=== PATIENT | male | born 1955 | race Caucasian/White ===

== ENCOUNTER 2017-06-01 06:50 | Day surgery (SDC) | payer OTHER ==
[~2017-06-01] VITALS: Ht 177.8 cm; Wt 91.2 kg
[~2017-06-01 06:50] MED LIST: DILAUDID2 MG PO; FLOMAX0.4 MG PO; HYDROCHLOROTHIA25 MG PO; IBUPROFEN800 MG PO; NORCO 5-325 TA1 EACH PO; ZOFRAN4 MG PO
[2017-06-01] MEDS ORDERED: HYDROCODON-ACE1 EAC8 PO (15:45)
--- NOTE | 2017-06-02 06:28 | OR ---
[facility] [address] [place], [place] [address] Signed DATE OF OPERATION: 06/01/2017 SURGEON: Isma Kwong MD PREOPERATIVE DIAGNOSIS: Bilateral inguinal hernias, right greater than the left. POSTOPERATIVE DIAGNOSIS: Bilateral indirect reducible inguinal hernias, right greater than the left. PROCEDURE: Bilateral Messi onlay mesh inguinal herniorrhaphies. ESTIMATED BLOOD LOSS: None. INDICATIONS: Edgar is a 61-year-old gentleman who worked his whole life as a carpenter rough. He said he enjoys that very much. Unfortunately, hurt his back and has been having trouble with the back, so he has been off work. He moved here to [place] to be closer to his daughter. Last winter, he was trying to shovel some snow in and up with pain and swelling in both his groins. He said it was miserable. He was hoping he just pulled a muscle. He realized the pain and swelling was not going away and was worse with activities. He said the right is larger than the left. He said even to lift a gallon of milk out of refrigerator was bothering him, walking up and down the stairs was bothering him. He said the pain is as high as a 9/10 particularly with activities. He says when he lies down in bed. He said it is not quite so bad. He finally decided to go to his primary care provider. An ultrasound was ordered and he has bilateral inguinal hernias, the right being larger than the left. Consequently, he was asked to see me as a general surgeon. He said he is not sure if he can push it back inside. Today, once we had him pharmacologically paralyzed, we were able to reduce both hernias. In the office, I gave him a pamphlet on hernias and we looked at that together in detail. He understands the nature of an inguinal hernia. He understands the difference between a primary suture repair and a mesh repair. He also understands expected intraop and postop course. We did review the risks including, but not limited to bleeding, infection, scarring, change in contour of the skin, damage to the nerves, ischemic orchitis, recurrent hernias, and chronic pain. He had expressed understanding and wished to proceed. DESCRIPTION OF PROCEDURE: I met with Edgar and his family in our preop area. We agreed to repair both inguinal hernias and so we marked both sides. After this, Edgar was taken into the operating room and placed in a supine position under general endotracheal tube anesthesia. He was given preoperative antibiotics along with subcutaneous heparin. SCDs were utilized. He Electronically Signed By: ISMA KWONG MD 06/02/17 0628 PATIENT NAME: EDGAR JAIMES OPERATIVE REPORT DATE OF : 59 PHYSICIAN: ISMA KWONG MD REPORT #: [id number] REPORT IS CONFIDENTIAL AND NOT TO BE RELEASED WITHOUT AUTHORIZATION [address] [address] Signed was then prepped and draped in the usual sterile fashion. We utilized a standard oblique incision in the right groin and carried down to the tissue bluntly with the cautery. The external oblique fascia was opened along its length and developed medially and laterally. The ilioinguinal iliohypogastric nerves were visualized and protected throughout the case. The cord structures were then elevated to the level of pubic tubercle with the help of the Bayron drain. Upon inspection he had some weakness to the direct space, but no overt no overt hernia. We approached the deep ring on the anteromedial side of the cord structures. We quickly found his moderate to large inguinal hernia sac. We easily from the surrounding cord structures. This hernia sac was opened to make sure all the contents were reduced. The neck of the hernia sac was suture ligated with 2-0 PDS suture. The sac was amputated and passed off the field. After this, a piece of flat Prolene mesh was cut to fit his groin and the mesh was held in place medially and laterally with the help of #1 Prolene suture. A slit had been made in the mesh to accommodate the cord structures at the level of deep ring. After this, the wound was infiltrated with local anesthetic. The wound was irrigated and suctioned out until clear. The external oblique fascia was closed over the repair with the help of a running 2-0 PDS suture. The Indigo's fascia was then reapproximated in a running 3-0 Monocryl suture. The dermis was reapproximated with interrupted 3-0 subcuticular Monocryl sutures. The skin edges were then reapproximated in a running 6-0 fast absorbing plain gut suture. After this, we approached his left groin. We measured out an incision in the left groin to be a mirror image of the right. The details of the procedure are basically the same. Once again, he had an indirect inguinal hernia and much smaller hernia sac. Once again, we could visualize the ilioinguinal and iliohypogastric nerves and we protected them throughout the case. We also used our flat Prolene mesh in identical manner to repair his hernia on the left side. After this, the wound had been closed as before. Dry gauze and tape were then applied to both incisions. Edgar was awakened from his anesthesia, extubated in the OR, and taken to recovery room in stable condition. Isma Kwong MD ALB/MODL /[id number] Electronically Signed By: ISMA KWONG MD 06/02/17 0628 PATIENT NAME: EDGAR JAIMES OPERATIVE REPORT DATE OF : 59 PHYSICIAN: ISMA KWONG MD REPORT #: [id number] REPORT IS CONFIDENTIAL AND NOT TO BE RELEASED WITHOUT AUTHORIZATION [address] [place], [place] [address] Signed cc: MD Nancy Rod PA-C Electronically Signed By: ISMA KWONG MD 06/02/17 0628 PATIENT NAME: EDGAR JAIMES OPERATIVE REPORT DATE OF : 59 PHYSICIAN: ISMA KWONG MD REPORT #: [id number] REPORT IS CONFIDENTIAL AND NOT TO BE RELEASED WITHOUT AUTHORIZATION
== END 2017-06-02 09:15 | disposition home or self-care (01) ==
LOC: DS 06:50 → MS 17:25 → DS 06-02 09:15
PROVIDERS: Colon & Rectal Surgery
PROC: 0YUA0JZ Supplement Bilateral Inguinal Region with Synthetic Substitute, Open Approach (ICD-10-PCS; principal; 2017-06-01 08:45)
DX: K40.20 Bilateral inguinal hernia, without obstruction or gangrene, not specified as recurrent (principal); R06.83 Snoring; M19.90 Unspecified osteoarthritis, unspecified site; F17.220 Nicotine dependence, chewing tobacco, uncomplicated; F12.90 Cannabis use, unspecified, uncomplicated; Z87.442 Personal history of urinary calculi; Z88.5 Allergy status to narcotic agent; Z79.899 Other long term (current) drug therapy; Z98.890 Other specified postprocedural states
CPT/HCPCS: 00830; C1781; J0360; J0690; J1170; J2250; J2405; J2550; J2704; J2710; J3010; J7120

== ENCOUNTER 2018-10-25 12:17 | Emergency (ER) | payer OTHER ==
[~2018-10-25] VITALS: Ht 177.8 cm; Wt 91.2 kg
--- OUTSIDE RECORDS SUMMARY | ~2018-10-25 | XMS | Clinical Summary ---
Demographics + + + | Address | [address] | | | [place] [address] | + + + | Home Phone | | + + + | Preferred Language | Unknown | + + + | Marital Status | | + + + | Quaker Affiliation | Unknown | + + + | Race | Unknown | + + + | Ethnic Group | Unknown | + + + Author + + + | Author | [facility] | + + + | Organization | [facility] [employer] | + + + | Address | Unknown | + + + | Phone | Unavailable | + + + Support + + +---------+ + | Name | Relationship | Address | Phone | + + +---------+ + | Meenu Geronimo | ECON | Unknown | | + + +---------+ + Care Team Providers + +------+ + | Care Materials Handling Coordinator Name | Role | Phone | + +------+ + | Nancy Montes PA-C | PP | | + +------+ + Allergies + + + + + + | Active Allergy | Reactions | Severity | Noted | Comments | | | | | Date | | + + + + + + | Codeine | Angioedema | High | 11/04/19 | | | | | | 15 | | + + + + + + | Gabapentin | Other (See Comments) | Medium | 07/13/20 | Made patient feel | | | | | 18 | uneasy, lightheaded, | | | | | | sick. | + + + + + + Current Medications + + +--------+---------+------+------+-------+ | Prescription | Sig. | Disp. | Refills | Star | End | Statu | | | | | | t | Date | s | | | | | | Date | | | + + +--------+---------+------+------+-------+ | | Take 1 tablet by | | | | | Activ | | HYDROcodone-acetamin | mouth every 6 (six) | | | | | e | | ophen (NORCO) 5-325 | hours as needed for | | | | | | | MG per tablet | Pain. | | | | | | + + +--------+---------+------+------+-------+ | losartan (COZAAR) | Take 100 mg by mouth | | | | | Activ | | 100 MG tablet | daily. | | | | | e | + + +--------+---------+------+------+-------+ | amLODIPine | Take 1 tablet by | 30 | 11 | 12/ | 12 | Activ | | (NORVASC) 10 MG | mouth daily. | tablet | | 02/03 | 02/03 | e | | tablet | | | | 18 | 19 | | + + +--------+---------+------+------+-------+ Active Problems + + + | Problem | Noted Date | + + + | Spinal stenosis of lumbar region with neurogenic claudication | 11/29/2017 | + + + | Facet arthropathy, lumbar | 11/29/2017 | + + + | DDD (degenerative disc disease), lumbar | 10/11/2017 | + + + | Chronic left-sided low back pain with left-sided sciatica | 10/11/2017 | + + + | Radiculopathy of lumbar region | 10/11/2017 | + + + | Closed compression fracture of L2 lumbar vertebra | 10/11/2017 | + + + + + | Overview: chronic | | Problem List Reel Tender Utility | + + + + + | Nephrolithiasis | 11/03/2014 | + + + | Left knee pain | 02/14/2012 | + + + + + | Overview: Overview: Saw aryan in 2010. MRI 01/2011 showed | | degenerative joint disease in all three compartments, particular | | noting a degenerative medial meniscal tear. After MRI, completed | | arthroscopy. Pain Clinic- NSAIDs for now, trial of | | Pennsaid also given. Meet with podiatry, try steroid injections. | + + + + + | Benign hypertensive heart disease without heart failure | 04/01/2009 | + + + + + | Overview: Overview: 180/101 with donating plasma, cut back on | | salt, lost weight, was 240 lb. | + + Resolved Problems + + + + | Problem | Noted | Resolved | | | Date | Date | + + + + | Intractable abdominal pain | 11/04/19 | | | | 15 | 5 | + + + + Encounters +--------+ + + + + | Date | Type | Specialty | Care Team | Description | +--------+ + + + + | 10/12/ | Office | | Yanet Murcia DO | Hypertension, | | 2019 | Visit | | | unspecified type | | | | | | (Primary Dx); RBBB; | | | | | | Tobacco chew use | +--------+ + + + + | 09/01/ | Documentati | | Evelyn Robert | Other (ENTERED IN | | 2018 | on Only | | KELVIN Aguilar | ERROR) | +--------+ + + + + from Last 3 Months Family History + + +------+ + | Medical History | Relation | Name | Comments | + + +------+ + | Cancer | Father | | | + + +------+ + | Heart attack | Mother | | | + + +------+ + + +------+ + + | Relation | Name | Status | Comments | + +------+ + + | Father | | | | + +------+ + + | Mother | | | | + +------+ + + Social History + +-------+ +--------+------+ | Tobacco Use | Types | Packs/Day | Years | Date | | | | | Used | | + +-------+ +--------+------+ | Current Every Day | | | | | | Smoker | | | | | + +-------+ +--------+------+ + +---+---+---+ | Smokeless Tobacco: | | | | | Current User | | | | + +---+---+---+ + + | Tobacco Cessation: Ready to Quit: No | + + + + +---------+ + | Alcohol Use | Drinks/We | oz/Week | Comments | | | ek | | | + + +---------+ + | Yes | | | occasionally. | + + +---------+ + + + + | Sex Assigned at | Date Recorded | | | | + + + | Not on file | | + + + Last Filed Vital Signs + + + + | Vital Sign | Reading | Time Taken | + + + + | Blood Pressure | 136/78 | 10/12/2018 10:29 AM PDT | + + + + | Pulse | 86 | 10/12/2018 10:29 AM PDT | + + + + | Temperature | 36.9 C (98.4 F) | 11/04/2014 11:08 AM PDT | + + + + | Respiratory Rate | 18 | 11/04/2014 11:08 AM PDT | + + + + | Oxygen Saturation | 97% | 10/12/2018 10:29 AM PDT | + + + + | Inhaled Oxygen | - | - | | Concentration | | | + + + + | Weight | 93.9 kg (207 lb) | 10/12/2018 10:29 AM PDT | + + + + | Height | 176.5 cm (5' 9.5") | 10/12/2018 10:29 AM PDT | + + + + | Body Mass Index | 30.13 | 10/12/2018 10:29 AM PDT | + + + + Plan of Treatment +--------+---------+ + + + | Date | Type | Specialty | Care Team | Description | +--------+---------+ + + + | 04/12/ | Office | | [facility] | | | 2019 | Visit | | [address] | | | | | | [place] | | | | | | [address] | | | | | | | | +--------+---------+ + + + + + + + + | Health Maintenance | Due Date | Last Done | Comments | + + + + + | Vaccine: | | | | | Dtap/Tdap/Td (1 - | 7 | | | | Tdap) | | | | + + + + + | Vaccine: | | | | | Pneumococcal 19-64 | 7 | | | | (PPSV23 only) Medium | | | | | Risk (1 of 1 - | | | | | PPSV23) | | | | + + + + + | Colon Cancer | | | | | Screening | 8 | | | | (Colonoscopy) | | | | + + + + + | Vaccine: Zoster (1 | | | | | of 2) | 8 | | | + + + + + | Vaccine: Influenza | | | | | (Season Ended) | 9 | | | + + + + + Results Not on filefrom Last 3 Months Insurance + +--------+ +------+-------+ + | Payer | Benefi | Subscriber | Type | Phone | Address | | | t Plan | ID | | | | | | / | | | | | | | Group | | | | | + +--------+ +------+-------+ + | MEDICAID | [employer] | [id number] | | | [address] | | | N | | | | [place] | | | [place] | | | | [phone] | | | [employer] | | | | | + +--------+ +------+-------+ + + +--------+ +--------+ + + | Guarantor Name | Accoun | Relation to | Date | Phone | Billing Address | | | t Type | Patient | of | | | | | | | | | | + +--------+ +--------+ + + | GEMMA GERONIMO | Person | Self | [birth year] Home: | [address] | | | al/Fam | | [phone] | [place] [address] | | | francy | | | [phone] | | + +--------+ +--------+ + +
--- OUTSIDE RECORDS SUMMARY | ~2018-10-25 | XMS | Encounter Summary ---
Demographics + + + | Address | [address] | | | [place] [address] | + + + | Home Phone | | + + + | Preferred Language | Unknown | + + + | Marital Status | | + + + | Shinto Affiliation | Unknown | + + + | Race | Unknown | + + + | Ethnic Group | Unknown | + + + Author + + + | Author | [facility] [employer] | + + + | Organization | [facility] [employer] [facility] | + + + | Address | Unknown | + + + | Phone | Unavailable | + + + Support + + +---------+ + | Name | Relationship | Address | Phone | + + +---------+ + | Meenu Geronimo | ECON | Unknown | | + + +---------+ + Care Team Providers + +------+ + | Care Director Imaging Name | Role | Phone | + +------+ + | Nancy Montes PA-C | PCP | | + +------+ + Reason for Visit + + + | Reason | Comments | + + + | Follow-up | 3 month | + + + Consult and Treat (Routine) + +--------+ + + + + | Status | Reason | Specialty | Diagnoses / | Referred By | Referred To | | | | | Procedures | Contact | Contact | + +--------+ + + + + | Authorized | | Cardiology | Diagnoses | Simon, | Frannie | | | | | Essential | Nancy Cervatnes, | MD Prashant | | | | | (primary) | PRECIOUS [phone] | [address] | | | | | hypertension | [address] | [address] | | | | | Procedures | [address] | [place] | | | | | Consult | [place], | [address] Phone: | | | | | | [place] | [phone] | | | | | | [address] | Fax: | | | | | | Phone: | [phone] | | | | | | [phone] | | | | | | | Fax: | | | | | | | [phone] | | + +--------+ + + + + Encounter Details +--------+---------+ + + + | Date | Type | Department | Care Team | Description | +--------+---------+ + + + | 10/12/ | Office | [facility] | Yanet Murcia DO | Hypertension, | | 2019 | Visit | Cardiology [place] | [address] | unspecified type | | | | [address] | [place] | (Primary Dx); RBBB; | | | | [facility] [address] | [id number] | Tobacco chew use | | | | [place] [address] | | | | | | [phone] | | | +--------+---------+ + + + Social History + +-------+ +--------+------+ [...] | | | + +---+---+---+ + + +---------+ + | Alcohol Use | Drinks/We | oz/Week | Comments | | | ek | | | + + +---------+ + | Yes | | | occasionally. | + + +---------+ + + + + | Sex Assigned at | Date Recorded | | | | + + + | Not on file | | + + + as of this encounter Last Filed Vital Signs + + + + | Vital Sign | Reading | Time Taken | + + + + | Blood Pressure | 136/78 | 10/12/2018 10:29 AM PDT | + + + + | Pulse | 86 | 10/12/2018 10:29 AM PDT | + + + + | Temperature | - | - | + + + + | Respiratory Rate | - | - | + + + + | Oxygen [...] AM PDT | + + + + in this encounter Progress Notes Yanet Murcia DO - 10/12/2018 10:20 AM PDTFormatting of this note may be different from misti shafer. [facility] Cardiology Cardiology Follow Up Note Reason for Consultation: HTN Requesting Physician: Nancy Montes History Obtained From: patient HISTORY OF PRESENT ILLNESS: Cardiac Problem List 1. HTN 2. RBBB Non Cardiac Problem List 3. Chronic Pain 4. DDD 5. OA left knee 6. Current tobacco use- chew The patient is a 62-year-old male who presents at the cardiology office for follow up price yepez hypertension. The patient reports that he has had elevated blood pressures since about 2004. He was recently started on losartan and this has been uptitrated to 100 mg by mouth daily. The patient states that he does not want to take oral diuretics as he has issues wit h nocturia and he feels that this will become worse with these medications. He is an active tobacco user and chews daily. He reports when he chews, he feels his blood pressure elevat e. He has a blood pressure cuff at home and reports that when he checks at home, the blood pressures are usually in the 140 systolic. The patient reports that he has a history of whi te coat hypertension and admits that he is quite nervous today for this appointment. He mauricio cribes himself as an active individual. His limiting factor to exertion is primarily back p ain. 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 He denies any exertion al chest pain through shortness of breath whatsoever. He denies any lower extremity swellin g, orthopnea, PND. He smokes marijuana daily for back pain, but denies any other illicit dr ug use. Interim History The patient was last seen by me on 07/13/18. At that time, we added amlodipine 10mg po siri y. He was asked to check his BP regularly. Today, he reports that he has been feeling fine l ately. He has not been checking his blood pressure like I asked last visit. Instead, he only checks his blood pressure if he is feeling bad. When I asked him what he meant by this he s aid 'when I feel weak'. He reports that his blood pressures are typically in the 130s during these periods. He did not write them down. He has been very inactive lately mainly due to i ssues with back pain. He denies any chest pain, SOB, or other new symptoms since we last saw each other. Review of Systems Constitutional: Negative for fatigue. HENT: Negative for nosebleeds. Eyes: Negative for visual disturbance. Respiratory: Negative for cough and shortness of breath. Cardiovascular: Negative for chest pain, palpitations and leg swelling. Gastrointestinal: Negative for nausea, vomiting, abdominal pain and blood in stool. Genitourinary: Negative for hematuria or dysuria. Musculoskeletal: Negative for myalgias. Positive for back pain and knee pain. Skin: Negative for color change. Neurological: Negative for dizziness, syncope and numbness. Hematological: Does not bruise/bleed easily. Psychiatric/Behavioral: The patient is not depressed. He is anxious. PAST MEDICAL & SURGICAL HISTORY Past Medical History Diagnosis Date Joint pain Past Surgical History Procedure Laterality Date COLONOSCOPY HEMORRHOID SURGERY KNEE ARTHROSCOPY W/ MENISCAL REPAIR Left MEDICATIONS Home Medications Outpatient Encounter Prescriptions as of 10/12/2018 Medication Sig Dispense Refill amLODIPine (NORVASC) 10 MG tablet Take 1 tablet by mouth daily. 30 tablet 11 HYDROcodone-acetaminophen (NORCO) 5-325 MG per tablet Take 1 tablet by mouth every 6 (s ix) hours as needed for Pain. losartan (COZAAR) 100 MG tablet Take 100 mg by mouth daily. No facility-administered encounter medications on file as of 10/12/2018. Allergies Allergies Allergen Reactions Codeine Angioedema Gabapentin Other (See Comments) Made patient feel uneasy, lightheaded, sick. FAMILY HISTORY Family History Problem Relation Age of Onset Heart attack Mother Cancer Father mom [place] at 60yo Dad pancreatic cancer SOCIAL HISTORY Social History Social History Marital status: Spouse name: N/A Number of children: N/A Years of education: N/A Occupational History Not on file. Social History Main Topics Smoking status: Current Every Day Smoker Smokeless tobacco: Current User Alcohol use Yes Comment: occasionally. Drug use: Yes Types: Marijuana Sexual activity: Not on file Other Topics Concern Not on file Social History Narrative No narrative on file PHYSICAL EXAM Vital Signs: BP 136/78 (BP Location: Left upper arm, Patient Position: Sitting) | Pulse 86 | Ht 1.765 m (5' 9.5") | Wt 93.9 kg (207 lb) | SpO2 97% | BMI 30.13 kg/m Physical Exam GENERAL: Well developed, well nourished, in no distress. Appears approximately stated age . HEENT: Normocephalic, atraumatic. EYES: PERRL, sclerae anicteric, no xanthelsasmas NECK: No JVD, lymphadenopathy, thyromegaly, bruits. Carotid pulses are 2+ bilaterally LUNGS: Clear bilaterally, with no rales, rhonchi or wheezing noted, respirations unlabored HEART: Nondisplaced PMI, regular rate and rhythm, S1, S2 normal. No murmurs, rubs or gall ops noted. ABDOMEN: Soft, nontender, no organomegaly, masses or bruits. Bowel sounds are normal in a ll 4 quadrants. The abdominal aortic pulsation is not palpable. EXTREMITIES: No edema. Radial pulses 2+ bilaterally. Femoral pulses are 2+ bilaterally wi thout bruits. DP and PT pulses are 2+ bilaterally. SKIN: Warm and dry, capillary refill is normal, no lesions. NEUROLOGIC: Awake, alert and oriented x 3. No focal motor deficits. PSYCHIATRIC: Appropriate, affect appears normal DATA No recent blood work available EK03/13/18 Normal sinus rhythm mentioning beats per minute, right bundle branch block 07/13/18 ordered and reviewed by myself Sinus tachycardia 109 bpm, right bundle branch block ASSESSMENT & PLAN 1. HTN 2. RBBB 3. Chronic Pain 4. DDD 5. OA left knee 6. Current tobacco use- chew - Mr. Geronimo is a 62 yo male who presents to the cardiology clinic to follow up for histo ry of hypertension. He is currently on losartan 100 mg by mouth daily. At last visit, we add ed amlodipine 10mg po daily. His blood pressures are much better controlled with this. He is not checking his BP regularly at home, thus difficult to know what his average systolic blo od pressures are. His BP today is 136/78. - Continue losartan 100 mg by mouth daily - Continue amlodipine 10 mg by mouth daily - I have asked the patient to monitor his blood pressures at home - If his blood pressure is uncontrolled and next visit, we'll consider adding either carved ilol or labetalol - We discussed a heart healthy diet for blood pressure control - He was encouraged to stop chewing, he is not interested in quitting at this time - Follow up in 6 months Thank you for allowing me to participate in the care of this patient. Primary Care Physician: Nancy Murcia DO 10/12/2018in this encounter Plan of Treatment +--------+---------+ + + + | Date | Type | Specialty | Care Team | Description | +--------+---------+ + + + | 04/12/ | Office | Cardiology | Yanet Murcia DO | | | 2018 | Visit | | [address] | | | | | | [place] | | | | | | [id number] | | | | | | | | +--------+---------+ + + + as of this encounter Visit Diagnoses + + | Diagnosis | + + | Hypertension, unspecified type - Primary | + + | RBBB | + + | Right bundle branch block | + + | Tobacco chew use | + + | Tobacco use disorder | + +
--- OUTSIDE RECORDS SUMMARY | ~2018-10-25 | XMS | Encounter Summary ---
Demographics + + + | Address | [address] | | | [place] [address] | + + + | Home Phone | | + + + | Preferred Language | Unknown | + + + | Marital Status | | + + + | Hoahaoism Affiliation | Unknown | + + + | Race | Unknown | + + + | Ethnic Group | Unknown | + + + Author + + + | Author | [facility] | + + + | Organization | [facility] | + + + | Address | Unknown | + + + | Phone | Unavailable | + + + Support + + +---------+ + | Name | Relationship | Address | Phone | + + +---------+ + | Meenu Geronimo | ECON | Unknown | | + + +---------+ + Care Team Providers + +------+ + | Care Air Tucker Name | Role | Phone | + [...] | | | | Essential | Nancy Cervantes, | MD Prashant | | | | | (primary) | PRECIOUS [address] | [address] | | | | | hypertension | [address] | [address] | | | | | Procedures | Ave | [place] | | | | | Consult | [place], | [address] Phone: | | | | | | [place] | [phone] | | | | | | [address] | Fax: | | | | | | Phone: | [phone] | | | | | | [phone] | | | | | | | Fax: | | | | | | | [phone] | | + +--------+ + + + + Encounter Details +--------+---------+ + + + | Date | Type | Department | Care Team | Description | +--------+---------+ + + + | 10/12/ | Office | [facility] | Yanet Murcia DO | Hypertension, | | 2019 | Visit | Cardiology [place] | [address] | unspecified type | | | | [address] | [place] | (Primary Dx); RBBB; | | | | [facility] [address] | [id number] | Tobacco chew use | | | | [place] [address] | | | | | | [phone] | | | +--------+---------+ + + + [...] note may be different from misti shafer. [facility] Cardiology Cardiology Follow Up Note Reason for [...] Onset Heart attack Mother Cancer Father mom [place] at 60yo Dad pancreatic cancer SOCIAL HISTORY [...] [place] | | | | | | [id number] | | | | | | | [...]
--- OUTSIDE RECORDS SUMMARY | ~2018-10-25 | XMS | Encounter Summary ---
Demographics + + + | Address | [address] | | | [place] [address] | + + + | Home Phone | | + + + | Preferred Language | Unknown | + + + | Marital Status | | + + + | Worship Affiliation | Unknown | + + + | Race | Unknown | + + + | Ethnic Group | Unknown | + + + Author + + + | Author | [facility] | + + + | Organization | [facility] | + + + | Address | Unknown | + + + | Phone | Unavailable | + + + Support + + +---------+ + | Name | Relationship | Address | Phone | + + +---------+ + | Meenu Geronimo | ECON | Unknown | | + + +---------+ + Care Team Providers + +------+ + | Care Cartographic Aide Name | Role | Phone | + +------+ + | Nancy Montes PA-C | PCP | | + +------+ + Reason for Visit +--------+ + | Reason | Comments | +--------+ + | Other | ENTERED IN ERROR | +--------+ + Encounter Details +--------+ + + + + | Date | Type | Department | Care Team | Description | +--------+ + + + + | 09/01/ | Documentati | [facility] | Evelyn Robert | Other (ENTERED IN | | 2019 | on Only | Cardiology Edu Aguilar MA | ERROR) | | | | [address] | | | | | | [place] | | | | | | [address] | | | | | | [phone] | | | +--------+ + + + + Social History + +-------+ [...] + + + as of this encounter Plan of Treatment +--------+---------+ + + + | Date | Type | Specialty | Care Team | Description | +--------+---------+ + + + | 04/12/ | Office | Cardiology | Yanet Murcia DO | | | 2019 | Visit | | [address] | | | | | | [place] | | | | | | [address] | | | | | | | | +--------+---------+ + + + as of this encounter Visit Diagnoses Not on filein this encounter"
--- OUTSIDE RECORDS SUMMARY | ~2018-10-25 | XMS | Encounter Summary ---
Demographics + + + | Address | [address] | | | [place] [address] | + + + | Home Phone | | + + + | Preferred Language | Unknown | + + + | Marital Status | | + + + | Taoist Affiliation | Unknown | + + + | Race | Unknown | + + + | Ethnic Group | Unknown | + + + Author + + + | Author | [facility] | + + + | Organization | [facility] | + + + | Address | Unknown | + + + | Phone | Unavailable | + + + Support + + +---------+ + | Name | Relationship | Address | Phone | + + +---------+ + | Meenu Gernoimo | ECON | Unknown | | + + +---------+ + Care Team Providers + +------+ + | Care Broadcast Operations Engineer Name | Role | Phone | + [...] [place] | | | | | | [address] | | | | | | [phone] | | | +--------+ + + + [...] [place] | | | | | | [address] | | | | | | | | +--------+---------+ + + + as of this encounter Visit Diagnoses Not on filein this encounter"
--- OUTSIDE RECORDS SUMMARY | ~2018-10-25 | XMS | Clinical Summary ---
Demographics + + + | Address | [address] | | | [place] [address] | + + + | Home Phone | | + + + | Preferred Language | Unknown | + + + | Marital Status | | + + + | Yazidi Affiliation | Unknown | + + + | Race | Unknown | + + + | Ethnic Group | Unknown | + + + Author + + + | Author | [facility] | + + + | Organization | [facility] | + + + | Address | Unknown | + + + | Phone | Unavailable | + + + Support + + +---------+ + | Name | Relationship | Address | Phone | + + +---------+ + | Meenu Geronimo | ECON | Unknown | | + + +---------+ + Care Team Providers + +------+ + | Care Fish Housekeeper Name | Role | Phone | + [...] | Overview: chronic | | Problem List Field Artillery Targeting Technician Utility | + + + + + [...] [place] | | | | | | [address] | | | | | | | [...] +------+-------+ + | MEDICAID | [place] | [id number] | | | [address] | | | [address] | | | | [place] | | | [place] | | | | [address] | | | PER DIEM PHYSICAL THERAPIST | | | | | + +--------+ [...] | [phone] | [place] [address] | | | francy | | | [phone] | | + +--------+ +--------+ + +
[~2018-10-25 12:17] MED LIST changes: +HYDROCODON-ACE1 EAC8 PO
--- OUTSIDE RECORDS SUMMARY | 2018-10-25 12:20 | XMS ---
PreManage Notification: GEMMA JAIMES Security Director Trial Events No recent Security Events currently on file CRITERIA MET - LEYDAP CARE PROVIDERS Anuradha, Jennifer C Primary Care Current PHONE: Unknown orkris Case or Splicer Helper Current PHONE: Unknown Luma has no Care Guidelines for this patient. Quyen VISIT COUNT (12 MO.) 1 CARLITO Barros TOTAL 1 NOTE: Visits indicate total known visits. ED/UCC VISIT TRACKING (12 MO.) 10/25/2018 12:[address] [facility] [place] TYPE: Emergency COMPLAINT: - VOMITING, ABD/FLANK PAIN INPATIENT VISIT TRACKING (12 MO.) No inpatient visits to display in this time frame [email or web address]
[2018-10-25] MEDS ORDERED: LOSARTAN POTAS100 MG PO (12:31)
[2018-10-25] MEDS ORDERED: AMLODIPINE BESY10 MG PO (12:31)
[2018-10-25] MEDS ORDERED: ONDANSETRON ODT8 MG PO (16:50)
[2018-10-25] MEDS ORDERED: PROMETHAZINE HC25 M1 PO (16:54)
[2018-10-25] MEDS ORDERED: NORCO 7.5-3251 EACH PO (16:54)
== END 2018-10-25 17:13 | disposition home or self-care (01) ==
LOC: ED 12:17
DX: I72.2 Aneurysm of renal artery (principal); Z88.5 Allergy status to narcotic agent; Z79.899 Other long term (current) drug therapy
CPT/HCPCS: 71046; 74177; 80053; 81001; 83690; 85025; 96361; 99284-25; J1170; J2405; J2550; J7030; Q9967

== ENCOUNTER 2019-08-09 16:04 | Emergency (ER) | payer OTHER ==
[~2019-08-09] VITALS: Ht 177.8 cm; Wt 91.2 kg
[~2019-08-09 16:04] MED LIST changes: +AMLODIPINE BESY10 MG PO; +LOSARTAN POTAS100 MG PO; +NORCO 7.5-3251 EACH PO; +ONDANSETRON ODT8 MG PO; +PROMETHAZINE HC25 M1 PO
--- OUTSIDE RECORDS SUMMARY | 2019-08-09 16:08 | XMS ---
PreManage Notification: GEMMA JAIMES Security Fire Prevention Forester Events No recent Security Events currently on file CRITERIA MET - [facility] Physician Exhaust Equipment Operator 10/26/2018-Current PHONE: [phone] Jennifer Ling Primary Care Current PHONE: Unknown orkris Case or Rn Chronic Current PHONE: Unknown Luma has no Care Guidelines for this patient. E.D. VISIT COUNT (12 MO.) [address] [facility] TOTAL 2 NOTE: Visits indicate total known visits. ED/UCC VISIT TRACKING (12 MO.) 08/09/2019 16:06 [facility] [place] TYPE: Emergency COMPLAINT: - LEFT LEG PAIN 10/25/2018 12:18 [facility] [place] TYPE: Emergency COMPLAINT: - VOMITING, ABD/FLANK PAIN DIAGNOSES: - Allergy status to narcotic agent status - Nausea with vomiting, unspecified - Other manager long term care (current) drug therapy - Aneurysm of renal artery INPATIENT VISIT TRACKING (12 MO.) No inpatient visits to display in this time frame [email or web address]
[2019-08-09] MEDS ORDERED: XARELTO15 MG PO (16:34)
== END 2019-08-09 16:43 | disposition home or self-care (01) ==
LOC: ED 16:04
DX: I82.402 Acute embolism and thrombosis of unspecified deep veins of left lower extremity (principal); Z88.5 Allergy status to narcotic agent; Z79.899 Other long term (current) drug therapy
CPT/HCPCS: 99283

== ENCOUNTER 2023-12-09 08:05 | Emergency (ER) | payer MEDICARE, OTHER ==
[~2023-12-09] VITALS: Ht 177.8 cm; Wt 84.7 kg
[~2023-12-09 08:05] MED LIST changes: +XARELTO15 MG PO
--- OUTSIDE RECORDS SUMMARY | 2023-12-09 08:06 | XMS ---
PreManage Notification: GEMMA JAIMES Security Naval Aircrewman Mechanical Events No recent Security Events currently on file CRITERIA MET - PDMP CARE PROVIDERS [facility]OR SUM[facility]ERS Physician Psychiatric Registered Nurse 10/26/2018-Current PHONE: [phone] -Steven DMD Dentist: Stationary Steam Engineer Current PHONE: [phone] [facility]/Center: [facility] Current \F\ [facility] PHONE: [phone] Luma has no Care Guidelines for this patient. E.D. VISIT COUNT (12 MO.) 1 [facility] TOTAL 1 NOTE: Visits indicate total known visits. ED/UCC VISIT TRACKING (12 MO.) 12/09/2023 08:05 [facility] [place] TYPE: Emergency COMPLAINT: - ABDOMINAL PAIN INPATIENT VISIT TRACKING (12 MO.) No inpatient visits to display in this time frame [id number]
[2023-12-09 08:29] LABS: BASOPHILS 0.6 % (0-2); HEMATOCRIT 43.5 % (35.0-50.0); HEMOGLOBIN 14.6 g/dL (12.0-18.0); LYMPHOCYTES 20.5 % (24-44); MCH 31.2 (27-36); MCHC 33.6 g/dl (30-36); MCV 92.8 fl (81-99); MONOCYTES 2.3 % (0-12); NEUTROPHILS 76.6 % (39-80); PLATELET COUNT 205 K/uL (140-440); RBC 4.69 M/ul (4.3-5.7); RDW 13.2 (10.5-15.0)
[2023-12-09] MEDS ORDERED: SODIUM CHLORIDE 0.9% 1,000 ML IV PRN (08:30)
[2023-12-09] MEDS ORDERED: ondansetron HCL 4 MG/2 ML VIAL IV ONE (08:30)
[2023-12-09] MEDS ORDERED: HYDROmorphone HCL 1 MG/ML SYR IV ONE ×2 (08:30→12:15)
[2023-12-09 08:41] LABS: ALBUMIN 4.2 g/dL (3.4-5.0); ALBUMIN/GLOBULIN RATIO 0.91 (1.1-2.4); ANION GAP 22.2 (7-21); BILIRUBIN, TOTAL 0.8 ng/dL (0.2-1.0); BUN/CREATININE RATIO 14.08 (6.0-28.6); CALCIUM 9.6 mg/dL (8.5-10.1); CREATININE, SERUM 1.42 mg/dL (0.70-1.30); POTASSIUM 4.2 mmol/L (3.5-5.1); PROTEIN, TOTAL 8.8 g/dL (6.4-8.2)
[2023-12-09] MEDS ORDERED: PROCHLORPERAZINE EDISYLATE 10 MG/2 ML VIAL IV ONE (12:45)
[2023-12-09] MEDS ORDERED: COMPAZINE25 MG PR (13:19)
[2023-12-09] MEDS ORDERED: ONDANSETRON ODT8 MG PO (13:19)
[2023-12-09] MEDS ORDERED: OXYCODONE HCL5 MG PO (13:19)
[2023-12-09 13:48] VITALS: BP 134/66
== END 2023-12-09 13:49 | disposition home or self-care (01) ==
LOC: ED 08:05
PROVIDERS: Emergency Medicine
DX: K43.9 Ventral hernia without obstruction or gangrene (principal); K83.8 Other specified diseases of biliary tract; R79.89 Other specified abnormal findings of blood chemistry; I10 Essential (primary) hypertension; Z95.828 Presence of other vascular implants and grafts; Z88.5 Allergy status to narcotic agent; Z79.01 Long term (current) use of anticoagulants; Z79.899 Other long term (current) drug therapy
CPT/HCPCS: 36415; 74177; 76705; 80053; 85025; 96361; 96375; 96376; 99284-25; J0780; J1170; J2405; J7030; Q9967

== ENCOUNTER 2024-05-09 05:45 | Observation (INO) | payer MEDICARE, OTHER ==
[2024-05-02 16:50] VITALS: BP 120/72
[2024-05-09] VITALS (9 sets, daily range): BP systolic 132–175; BP diastolic 76–89
[~2024-05-09] VITALS: Ht 177.8 cm; Wt 78.6 kg
[~2024-05-09 05:45] MED LIST changes: +CHLORTHALIDONE25 MG PO; +CILOSTAZOL100 MG PO; +COMPAZINE25 MG PR; +LABETALOL HCL200 MG PO; +LACTATED RINGER'S 1,000 ML IV SCH; +OXYCODONE HCL5 MG PO; +ROSUVASTATIN CA20 MG PO; +ZESTRIL10 MG PO
[2024-05-09] MEDS ORDERED: OXYCODONE-ACET1 EAC3 PO (06:00)
[2024-05-09] MEDS ORDERED: iopamidoL 30 ML VIAL ONE (06:39)
[2024-05-09] MEDS ORDERED: BUPIVACAINE HCL 0.25% 50 ML MDV ONE (06:39)
[2024-05-09] MEDS ORDERED: SODIUM CHLORIDE 0.9% 40 ML IV ONE (06:40)
[2024-05-09] MEDS ORDERED: LIDOCAINE 1% W/ EPI 1:200,000 30 ML SDV ONE (06:40)
[2024-05-09] MEDS ORDERED: IBLOOD GLUCOSE TEST STRIP 1 EA TEST VI PRN ×2 (07:00→09:00)
[2024-05-09] MEDS ORDERED: CEFAZOLIN SODIUM 2 GM/20 ML SYR IV SCH (07:00)
[2024-05-09] MEDS ORDERED: LIDOCAINE HCL 1% 5 ML SDV INJ ONE (07:00)
[2024-05-09] MEDS ORDERED: SCOPOLAMINE 1 MG/3 DAYS PATCH 1 EACH TDSY TD SCH (07:00)
[2024-05-09] MEDS ORDERED: ENOXAPARIN SODIUM 40 MG/0.4 ML SYR SUB-Q SCH ×2 (07:00→10:31)
[2024-05-09] MEDS ORDERED: fentaNYL citrate 250 MCG/5 ML VIAL ONE (07:06)
[2024-05-09] MEDS ORDERED: ROCURONIUM BROMIDE 50 MG/5 ML SYR ONE ×2 (07:06→09:41)
[2024-05-09] MEDS ORDERED: KETOROLAC TROMETHAMINE 30 MG/ML VIAL ONE (07:06)
[2024-05-09] MEDS ORDERED: ondansetron HCL 4 MG/2 ML VIAL ONE (07:06)
[2024-05-09] MEDS ORDERED: SUGAMMADEX SODIUM 200 MG/2 ML ML ONE (07:06)
[2024-05-09] MEDS ORDERED: ACETAMINOPHEN 1,000 MG/100 ML VIAL ONE (07:06)
[2024-05-09] MEDS ORDERED: propofoL 200 MG/20 ML VIAL ONE (07:06)
[2024-05-09] MEDS ORDERED: MIDAZOLAM HCL 2 MG/2 ML VIAL ONE (07:06)
[2024-05-09] MEDS ORDERED: DEXAMETHASONE SOD PHOS 4 MG/ML VIAL ONE (07:06)
[2024-05-09] MEDS ORDERED: LIDOCAINE HCL 2% 5 ML SDV ONE (07:06)
[2024-05-09] MEDS ORDERED: LIDOCAINE HCL 2% 20 MG/ML VIAL INJ ONE (07:06)
[2024-05-09] MEDS ORDERED: dexmedeTOMIDine HCl 200 MCG/2 ML VIAL ONE (07:44)
[2024-05-09] MEDS ORDERED: METOCLOPRAMIDE HCL 10 MG/2 ML SDV ONE (07:59)
[2024-05-09] MEDS ORDERED: hydrALAZINE HCL 20 MG/ML VIAL ONE (08:47)
[2024-05-09] MEDS ORDERED: NALOXONE HCL 0.4 MG SYR IV PRN (09:00)
[2024-05-09] MEDS ORDERED: PROCHLORPERAZINE EDISYLATE 10 MG/2 ML VIAL IV PRN ×2 (09:00→10:30)
[2024-05-09] MEDS ORDERED: fentaNYL citrate 50 MCG/ML SDV IV PRN (09:00)
[2024-05-09] MEDS ORDERED: droPERidol 5 MG/2 ML VIAL IV PRN (09:00)
[2024-05-09] MEDS ORDERED: ondansetron HCL 4 MG/2 ML VIAL IV PRN ×2 (09:00→10:30)
[2024-05-09] MEDS ORDERED: SEVOFLURANE 250 ML BTL INH ONE (09:16)
[2024-05-09] MEDS ORDERED: LACTATED RINGER'S 1,000 ML IV ONE (09:21)
--- NOTE | 2024-05-09 10:17 | NUR ---
05/09/24 Danny7 Jennifer Valdovinos 1010-PATIENT ARRIVED TO PACU ON 6L MASK NONAROUSABLE ORAL AIRWAY IN PLACE RR EVEN. IVF INFUSING. 4 LAP SITES TO ABDOMEN AND WENDY TO RLQ SANGUINOUS DRAINAGE. GAUZE AROUND WENDY DRAIN DOES HAVE DRAINAGE ON IT. SR.
[2024-05-09] MEDS ORDERED: DEXTROSE 5% - LACTATED RINGERS 1,000 ML IV SCH (10:30)
[2024-05-09] MEDS ORDERED: HYDROmorphone HCL 1 MG/ML SYR IV PRN (10:30)
[2024-05-09] MEDS ORDERED: ACETAMINOPHEN 500 MG TAB PO PRN (10:45)
[2024-05-09] MEDS ORDERED: hydrALAZINE HCL 20 MG/ML VIAL IV ONE (11:30)
--- NOTE | 2024-05-09 11:45 | NUR ---
PT ARRIVES TO FLOOR FROM PACU, REPORT RECEIVED FROM DEMETRI NIXON. PT REPEATING THAT HIS ABDOMEN IS PAINFUL, "MAN MY BELLY REALLY HURTS". PT TRANSFERRED TO BED VIA DRAW SHEET, PT DOES NOT ASSIST WITH TRANSFER HE REPORTS HE IS TOO PAINFUL. LAP SITES HAVE SHADOWING, WENDY DRAIN TO RLQ WITH SANGUINOUS FLUID. SCDs IN PLACE, CPOX TO L HAND AND AT BEDSIDE, ICE PACK APPLIED TO ABDOMEN AND WARM BLANKETS PROVIDED. PT REMAINS ON 2L NC, TRANSFERRED TO WALL OXYGEN SOURCE. ICE WATER AND ICE CHIPS SUPPLIED. PT STATES NAUSEA IS "VERY LITTLE" AT THE MOMENT, NO INTERVENTIONS AT THIS TIME. SCOPALAMINE PATCH NOTED TO R EAR. PT USES URINAL, REPORTS FREQUENCY WITH URINATION. PRESENTLY PT IS RESTING WITH EYES CLOSED, RR EVEN AND UNLABORED, CPOX READS 97% ON 2L NC. VS OBTAINED, RECORDED. NO OTHER NEEDS AT THIS TIME, CALL LIGHT IN REACH.
--- NOTE | 2024-05-09 12:47 | NUR ---
VS AND FOCUSED ASSESSMENT OF PT COMPLETE. VSS. LAP SITES UNCHANGED FROM PREVIOUS, SCANT SHADOWING ON ALL SITES. WENDY DRAIN IN PLACE, DRAINING SEROSANGUENIOUS FLUID. BOWEL TONES HEARD THROUGHOUT. PT REQUESTS URINAL USE AGAIN, ENCOURAGED TO USE URINAL BY HIMSELF WHICH HE SUCCESSFULLY DOES. URINE IS A PALE YELLOW AT THIS TIME. PT RESTING WITH EYES CLOSED, RR EVEN AND UNLABORED. ASKED PT ABOUT HIS PAIN LEVEL, STATED 9.5/10. PT ASKED IF THIS PAIN IS IN HIS ABDOMEN, PT STATES "IT ALL FUCKIN' HURTS". PT CLOSES HIS EYES AGAIN, RR REMAINS EVEN AND UNLABORED. PT OXYGEN TITRATED TO 1L, PATIENT SPO2 SUSTAINED AT 95% ON CPOX. PT DECLINES ICE PACK FOR ABDOMEN REPORTING IT IS TOO COLD. NO OTHER NEEDS AT THIS TIME, CALL LIGHT IN REACH.
--- NOTE | 2024-05-09 12:55 | OR ---
[facility] [address] [place], [place] [address] Signed DATE OF OPERATION: 05/09/2024 SURGEON: Isma Kwong MD PREOPERATIVE DIAGNOSES: 1. Cholelithiasis/sludge with chronic cholecystitis. 2. Choledocholithiasis status post ERCP. 3. Epigastric ventral hernia (1 x 3 cm). POSTOPERATIVE DIAGNOSES: 1. Cholelithiasis with chronic cholecystitis. 2. Debris in distal common bile duct. 3. Epigastric ventral hernia (1 x 3 cm). PROCEDURES: 1. Laparoscopic cholecystectomy with intraoperative cholangiogram (prolonged and difficult at two hours). 2. A primary ventral hernia repair. ESTIMATED BLOOD LOSS: None. FINDINGS: Edgar indeed had a small 1 x 3 cm ventral incisional hernia just above the umbilicus. We used that for our Chirag trocar. He also had adhesions to the midline as well as the triangle of Calot along the lateral aspect of his gallbladder. It took extra time to get into the abdomen and lyse some adhesions and also to take down the gallbladder and also to deal with his rather indurated tissue in the triangle of Calot. The procedure took two hours, which is at least an hour or longer than usual. In this way, it was prolonged and difficult. Intraoperative cholangiogram did show continued dilated common bile duct with probably some debris in his distal common bile duct. When we flushed again, it may have gone through. His cystic duct was also chronically dilated. He did have some remaining stones in his gallbladder. They were flat and square in shape, but very thin. INDICATIONS: Edgar is a 68-year-old gentleman, who is a retired digital analytics manager, who came to see me back in January of 2024. He had a midline epigastric ventral incisional hernia x2. This came after an aortobifemoral bypass graft at our [facility] back in 2022. He has been wearing a hernia belt to keep the hernia reduced. He had been in the Localsensorally Signed By: ISMA KWONG MD 05/09/24 1255 PATIENT NAME: EDGAR JAIMES OPERATIVE REPORT DATE OF : 59 REPORT #: [id number] PHYSICIAN: ISMA KWONG MD PCP: JESSICA FAN MD REPORT IS CONFIDENTIAL AND NOT TO BE RELEASED WITHOUT AUTHORIZATION [facility] [address], [place] [address] Signed emergency room here at [facility] in November of 2023. His hernia was reducible and a CT scan confirmed that he had a larger hernia measuring 3.9 cm in diameter containing some fat in transverse colon. The other hernias are much smaller and contained a little fat. I suspect that is the hernia we found today. In addition, the common bile duct was quite dilated at 2.[address] down to the ampulla of Vater. His laboratory work was unremarkable. His ultrasound did not reveal any obvious gallstones in the gallbladder. The liver was unremarkable. He underwent an MRCP at our [facility] and again the common bile duct was 27 mm in diameter and pancreatic duct was 6 mm in diameter. There were some concerns about some stones or sludge in his gallbladder. He was sent up to [facility] in [place], [place]. He underwent endoscopic ultrasound followed by ERCP. He had several stones extracted. He was asked by his automation clerk to come see me as a local general surgeon to have his gallbladder removed. He understands we can repair the ventral hernia as separate surgery. We do not want to mix mesh with gallbladder surgery if at all possible. In the office, he always comes with his daughter. I had given him brochures on both subjects. We talked about this in great detail. He understands that 2% up to 3% of the time we would convert to an open gallbladder surgery. He understands the expected intraop and postop course. He told me he always has profound nausea and vomiting after surgery and ended up staying in the hospital overnight even after his ERCP. Given the complexity of his surgery today, we will probably keep him at our surgery nonetheless for observation with repeat labs in the morning. We did give him a scopolamine patch for surgery as well. We did ask him to hold his Cilostazol five days prior to the procedure. He said he held it for seven days. He understands there is risk of surgery including, but not limited to bleeding, infection, scarring, change in contour of the skin, damage to the main bile duct, incisional hernias and other unforeseen comorbidities. He had expressed understanding and wished to proceed. PROCEDURE IN DETAIL: After talking to Edgar and his daughter in our preop area with the help of our nurse property insurance agent and our nurse, we took Edgar into the operating room. He was placed in the supine position under general endotracheal tube anesthesia. He was given preoperative antibiotics. There was some confusion about exactly when he held the Cilostazol, so we held the Lovenox preoperatively until the surgery was done. We used SCDs. He was prepped and draped in the usual sterile fashion. We made a standard vertical incision just above the umbilicus and we encountered a small 1 x 3 cm fascial defect. We went ahead and used that after some lysis of adhesions to place our Chirag trocar under direct visualization. The abdomen was insufflated and we were able to place our other trocars under direct visualization. We took pictures throughout for photodocumentation. He had adhesions to the lateral aspect of the gallbladder and down around the triangle of Calot. It took extra time to take these down with very careful dissection. The triangle of Calot was quite indurated from scar tissue and it took a while to very carefully followed the gallbladder down to the neck of the gallbladder Electronically Signed By: ISMA KWONG MD 05/09/24 1255 PATIENT NAME: EDGAR JAIMES OPERATIVE REPORT DATE OF : 59 REPORT #: [id number] PHYSICIAN: ISMA KWONG MD PCP: JESSICA FAN MD REPORT IS CONFIDENTIAL AND NOT TO BE RELEASED WITHOUT AUTHORIZATION [facility] [address], [place] [address] Signed where it joins the cystic duct. We opened it sharply and evacuated several stones. We inserted our intraoperative cholangiocatheter and held in place with our fallopian tube grasper. The contrast flowed nicely. The intraoperative cholangiogram showed that his cystic duct and common bile duct still quite dilated. It looked like he had some debris in his distal common bile duct. When I repeated the cholangiogram, it seemed to be passed. We then secured the cystic duct stump with our PDS Endoloop and two clips were placed across the cystic duct stump to paul its location. We then had very slowly carefully removed the gallbladder from the gallbladder fossa. His scar tissue continued posteriorly almost skilled nursing up the gallbladder. He also had some edema. In the end, we finally had the gallbladder free. We had to place several clips on the cystic artery as we worked our way up. After this, the gallbladder was placed into an EndoCatch bag. The right upper quadrant was irrigated and suctioned out until clear. We brought a #7 flat Brayan drain in the abdomen. We brought out laterally along the right subcostal margin held in place with 2-0 nylon suture. We placed that into the area. The cystic duct. We then used our laparoscopic suturing device to pass 0-Vicryl suture on either side of the fascia subxiphoid trocar site. This was tied down to close this fascia primarily. After this, all the gas was allowed to escape and all trocars were removed along with the gallbladder. The gallbladder was opened on the back table by our circulating nurse on. We could see that it traveled down nicely to the cystic duct. He had several small stones in the cystic duct as well. They are around 3-4 mm across and their square in shape and quite flat. We then closed his epigastric ventral hernia transversely with interrupted [id number] #1 Prolene sutures. Local anesthetic was injected into all trocar sites. Each trocar site was irrigated and suctioned out until clear. We closed the skin and dermis with interrupted 3-0 subcuticular Monocryl sutures. We used richardson to help bring the skin back together on his epigastric vertical incision. Dry gauze and tape was applied to all incisions. We applied the bulb to our drain. He was awakened from his anesthesia, extubated in the OR, and taken to recovery room in stable condition. Isma Kwong MD ALB/MODL /[id number] cc: Isma Kwong MD Electronically Signed By: ISMA KWONG MD 05/09/24 1255 PATIENT NAME: EDGAR JAIMES OPERATIVE REPORT DATE OF : 59 REPORT #: [id number] PHYSICIAN: ISMA KWONG MD PCP: JESSICA FAN MD REPORT IS CONFIDENTIAL AND NOT TO BE RELEASED WITHOUT AUTHORIZATION [facility] [address], [place] [address] Signed Jessica Fan MD Copies: ISMA KWONG MD, RUSSEL J MD ~ Electronically Signed By: ISMA KWONG MD 05/09/24 1255 PATIENT NAME: EDGAR JAIMES OPERATIVE REPORT DATE OF : 59 REPORT #: [id number] PHYSICIAN: ISMA KWONG MD PCP: JESSICA FAN MD REPORT IS CONFIDENTIAL AND NOT TO BE RELEASED WITHOUT AUTHORIZATION
--- NOTE | 2024-05-09 13:43 | NUR ---
VSS. PT RESTING IN BED WITH EYES CLOSED, RR EVEN AND UNLABORED, SOFT SNORE NOTED. LAP SITES UNCHANGED WITH RED SHADOWING EXCEPT RLQ SITE WHICH HAS SCANT BLOODY DRAINAGE THROUGH LAP SITE. DRAINAGE CLEANED UP, WENDY DRAIN STILL IN PLACE WITH SEROSANGENOUS FLUID DRAINING. PT CONTINUES TO SNORE. CALL LIGHT IN REACH.
--- NOTE | 2024-05-09 14:20 | NUR ---
UR CLINICAL REVIEW: 2MN [place]-[facility] OBS MEDICARE OBS 05/09/24 @ 1032 ORDER MATCHES REG NO AUTH REQUIRED PERM MEDICARE RULES PLAN TO DC HOME WHEN STABLE 05/10/24
--- NOTE | 2024-05-09 14:44 | NUR ---
VSS. LAP SITES REMAIN UNCHANGED WITH SCANT RED SHADOWING EXCEPT FOR LRQ SITE WHICH HAS SCANT SEROSANGUINEOUS DRAINAGE WHERE THE WENDY DRAIN IS LOCATED. WENDY DRAIN IS DRAINING FREELY. PT USES URINAL INDEPENDENTLY. PT REPORTS BEING COLD - WARM BLANKET PROVIDED. SPO2 95% ON 1L, TITRATED TO ROOM AIR AND PT SUSTAINS SPO2 OF 95% ON BEDSIDE CPOX. PT REMAINS DROWSY BUT ROUSES EASILY TO VOICE, FOLLOWS COMMANDS, AND RESPONDS APPROPRIATELY. NO OTHER NEEDS AT THIS TIME, CALL LIGHT IN REACH.
--- NOTE | 2024-05-09 15:34 | NUR ---
PATIENT IN BED AT THIS TIME. TRAIN PLANNER WENT INTO PATIENTS ROOM FOR HOURLY ROUNDINGS. CALL LIGHT WITHIN REACH, NO FURTHER NEEDS AT THIS TIME.
--- NOTE | 2024-05-09 15:46 | NUR ---
VSS. LAP SITES UNCHANGED FROM PREVIOUS ASSESSMENT. WENDY DRAIN DRAINING FREELY. PT USES URINAL INDEPENDENTLY. DR KWONG ROUNDS ON PT, UPDATES HIM ON SURGERY, PT VERBALIZES UNDERSTANDING. NO OTHER NEEDS, CALL LIGHT IN REACH.
[2024-05-09] MEDS ORDERED: OXYCODONE HCL 5 MG TAB PO PRN (16:15)
[2024-05-09] MEDS ORDERED: LORazepam 2 MG/ML VIAL IV PRN (16:15)
--- NOTE | 2024-05-09 17:58 | NUR ---
ROUNDING ON PT. PT URINAL HAS URINE IN IT, EMPTIED. PT STATES "MOVE FASTER, SHOW UP MORE" WHILE THIS RN IS EMPTYING THE URINAL. PT IMMEDIATELY USES URINAL AGAIN AND ALSO REPORTS THAT HE HAS REMOVED THE CHUX BENEATH HIM, IT IS SATURATED IN SWEAT, STICKING TO HIS BOTTOM, AND "PISSING ME OFF". ASKED PT ABOUT HIS PAIN LEVEL, PT GETS IRRITATED AND RAISES HIS VOICE TO STATE "12, PROBABLY 13.5! I NEED PAIN MEDICATION! PUT IT IN THIS!" AND WAVES HIS R HAND WITH IV IN IT. PT EDUCATED ON PO PAIN MEDICATIONS VERSUS IV PAIN MEDICATIONS. PT AGREES TO TRY PO PRN PAIN MEDICATIONS WITH SOME JELLO AND CRACKERS TO PREVENT NAUSEA. PO PAIN MEDICATIONS SUPPLIED, PT STATES "TYLENOL HURTS MY STOMACH, I CAN'T TAKE THAT". EXPLAINED TO PT THIS IS WHY THE JELLO IS ENCOURAGED WITH HIS PO MEDICATIONS. PT REPORTS HE DID NOT AGREE TO EATING ANY JELLO, HE STATES HE IS NAUSEATED, HE WILL ONLY ACCEPT THE PO OXYCODONE, THIS WILL NOT CAUSE HIM NAUSEA. PT SWEATING WITH VISIBLE SWEAT RUNNING FROM NECK TO CHEST. PT UPSET ABOUT PO MEDICATION ONLY, REQUESTING IV PAIN MEDICATION. IV PAIN MEDICATION PROVIDED, ICE PACK ALSO PROVIDED PT IS FINALLY AGREEABLE TO "GIVE IT A SHOT" HE NO LONGER FEELS COLD. PT QUIETS AND BEGINS RELAXING IN THE BED. CIWA ASSESSMENT COMPLETE FOR HX OF ETOH ABUSE. CIWA SCORE IS AN 11. PT IRRITABLE TO ANY DISTURBANCES AFTER IV PAIN MEDICATION ADMINISTRATION. NO FURTHER NEEDS AT THIS TIME, CALL LIGHT IN REACH.
--- NOTE | 2024-05-09 18:25 | NUR ---
PATIENT IN BED AT THIS TIME. MAINFRAME PROGRAMMER CHARTED VITALS AND I&O'S. CALL LIGHT WITHIN REACH, NO FURTHER NEEDS AT THIS TIME.
--- NOTE | 2024-05-09 18:37 | NUR ---
CIWA NOW SCORING 1 AFTER PRN PAIN MEDICATION. PT RESTING IN BED WITH EYES CLOSED, RR EVEN AND UNLABORED, APPEARS RELAXED. NO NEEDS AT THIS TIME, CALL LIGHT IN REACH.
--- NOTE | 2024-05-09 19:37 | NUR ---
BEDSIDE REPORT RECEIVED FROM DEMETRI LOZADA AND DEMETRI LR. pt RESTING IN BED, DENIES PAIN. REQUESTS HOME DIURETIC MEDICATION, ATTEMPT TO CALL MD. NO ANSWER. IV SITE ASSESSED, INFUSING WNL. CALL LIGHT IN REACH.
--- NOTE | 2024-05-09 20:23 | NUR ---
PHONE CALL FROM , NEW ORDER RECEIVED FOR pt HOME MEDICATION. ORDER VERIFIED USING REPEAT BACK METHOD. EMAR UPDATED.
[2024-05-09] MEDS ORDERED: CHLORTHALIDONE 25 MG TAB PO SCH (20:30)
[2024-05-09] MEDS ORDERED: LABETALOL HCL 200 MG TAB PO SCH (21:00)
--- NOTE | 2024-05-09 21:52 | NUR ---
pt RESTING IN BED, RATES PAIN 8.5-9/10. PRN MEDICATION ADMINISTERED. pt REFUSES PO SNACK WITH MEDICATIONS. IV SITE ASSESSED, IVF INFUSING WNL. pt REFUSES TO LET RN FLUSH IV SITE DESPITE EDUCATION PROVIDED. pt REFUSES TO AMBULATE AT THIS TIME. BOWEL TONES HYPOACTIVE. LAP SITES CDI. WENDY DRAIN STRIPPED, EMPTIED 20 MLS SANGUIOUS FLUID. ABDOMEN SOFT. ICE WATER REFILLED. URINAL EMPTIED. CALL LIGHT IN REACH.
--- NOTE | 2024-05-09 23:54 | NUR ---
CALL LIGHT ANSWERED. URINAL EMPTIED. pt DENIES ADDITIONAL NEEDS. LIGHTS OFF IN ROOM. IVF INFUSING WNL.
[2024-05-10 01:25] VITALS: BP 183/90
--- NOTE | 2024-05-10 01:40 | NUR ---
CALL LIGHT ANSWERED. URINAL EMPTIED. VS COMPLETE. pt RATES PAIN 8/10, CUSSES SAYING HOW BAD IT HURTS WHEN HE COUGHS. PRN PAIN MEDICATION ADMINSITERED, pt REFUSES TYLENOL OFFERED. ICE PACK PROVIDED. ASSESSMENT COMPLETE. MINIMAL DRAINAGE IN WENDY DRAIN. BOWEL TONES ACTIVE AT THIS TIME. CALL LIGHT IN REACH.
[2024-05-10 04:07] VITALS: BP 178/81
--- NOTE | 2024-05-10 04:11 | NUR ---
CALL LIGHT ANSWERED. PT NEEDED URINAL EMPTIED. MAKER UP FOLDING AND DEMETRI ALMENDAREZ OBTAINED VITALS AND I&O. URNIAL EMPTIED. PT COMPLAINING OF PAIN IN SHOULDER. DEMETRI MENDEZ NOTIFED. PT STATES NO FURTHER NEEDS AT THIS TIME. CALL LIGHT WITHIN REACH AND BED ALARM ON.
--- NOTE | 2024-05-10 04:15 | NUR ---
OPERATIONS MANAGER ASSISTANT IN ROOM DUMPING URINAL. pt REQUESTS PAIN MEDICATION, STATES "MY SHOULDER FUCKING HURTS". MEDICATED WITH PRN PAIN MEDICATION. ENCOURAGED pt TO WALK, pt REFUSES. ICE WATER REFILLED. pt DENIES ANY ADDITIONAL NEEDS. AGAIN ENCOURAGED pt TO CALL WHEN READY TO AMBULATE EVEN IF JUST IN ROOM. pt STATES "I'M GOOD". CALL LIGHT IN REACH.
[2024-05-10 05:52] LABS: BASOPHILS 0.2 % (0-2); EOSINOPHILS 0.2 % (0-6); HEMATOCRIT 40.6 % (35.0-50.0); HEMOGLOBIN 13.7 g/dL (12.0-18.0); LYMPHOCYTES 13.7 % (24-44); MCH 32.1 (27-36); MCHC 33.6 g/dl (30-36); MCV 95.5 fl (81-99); MONOCYTES 4.8 % (0-12); NEUTROPHILS 81.1 % (39-80); PLATELET COUNT 145 K/uL (140-440); RBC 4.25 M/ul (4.3-5.7); RDW 13.7 (10.5-15.0)
[2024-05-10 06:08] LABS: ALBUMIN 3.5 g/dL (3.4-5.0); ALBUMIN/GLOBULIN RATIO 0.9 (1.1-2.4); BILIRUBIN, TOTAL 0.6 ng/dL (0.2-1.0); BUN/CREATININE RATIO 9.77 (6.0-28.6); CALCIUM 9.5 mg/dL (8.5-10.1); CREATININE, SERUM 1.33 mg/dL (0.70-1.30); MAGNESIUM 1.6 mg/dL (1.8-2.4); PHOSPHORUS, INORGANIC 3.5 mg/dL (2.5-4.9); PROTEIN, TOTAL 7.4 g/dL (6.4-8.2)
--- NOTE | 2024-05-10 06:40 | NUR ---
MD IN ROOM, REMOVES DRESSINGS. MD DISCUSSES PICTURES, PROCEDURES WITH pt. SANGUINOUS DRAINAGE FROM WENDY INSERTION SITE AND MID UPPER ABDOMEN LAP SITE. REINFORCED WITH GAUZE PER MD. OKAY FOR pt TO SHOWER. pt REFUSES BREAKFAST. MD ENCOURAGES pt TO AMBULATE. pt REQUESTS PRN PAIN MEDICATION, ICE PACK OFFERED, pt REFUSES. pt REQUESTS TO WAIT FOR OXYCODONE. CALL LIGHT IN REACH.
[2024-05-10 06:47] VITALS: BP 178/81
--- NOTE | 2024-05-10 06:58 | NUR ---
PRN PAIN MEDICATION ADMINISTERED FOR 8.5-9/10 REPORTED ABDOMINAL PAIN. pt SL AT THIS TIME. CALL LIGHT IN REACH.
--- NOTE | 2024-05-10 07:25 | NUR ---
REPORT RECEIVED FROM DISABILITY BENEFITS SPECIALIST DEMETRI MENDEZ. PATIENT IS LYING IN BED WITH EYES CLOSED AND RESPIRATIONS ARE EVEN AND UNLABORED. CALL LIGHT AND PERSONAL BELONGINGS ARE WITHIN REACH.
--- NOTE | 2024-05-10 08:00 | DS ---
[facility] [address], [place] [address] Signed ADMISSION DATE: 05/09/2024 DISCHARGE DATE: 05/10/2024 FINAL DIAGNOSES: 1. Chronic cholecystitis with cholelithiasis. 2. Epigastric ventral incisional hernia (1 x 3 cm). PROCEDURES: 1. Laparoscopic cholecystectomy with intraoperative cholangiogram (prolonged and difficult at 2 hours). 2. Primary epigastric ventral incisional herniorrhaphy. 3. Subhepatic drain placement. 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 He has trouble with peripheral vascular disease. He underwent an aortobifem bypass graft with our vascular surgeons at our [facility]. He has developed two incisional hernias in the epigastric area. The larger one we can see and palpate and reduce, the other was too small to detect on physical exam. When he had the CT scan of his abdomen and pelvis, they realized he had a very dilated common bile duct. He went up to [facility] to see his drug safety assistant. He had an ERCP and stones were removed from the common bile duct. He was asked to come and see me as a local general surgeon to remove the gallbladder. He is hoping to have his epigastric hernias repaired as well. HOSPITAL COURSE: Edgar was brought to the hospital yesterday and he had stopped his Cilostazol for seven days. He went to the operating room and he had a prolonged and difficult laparoscopic cholecystectomy with intraoperative cholangiogram. He had some scarring and adhesions from his previous abdominal surgeries. We did find a small hernia just above the umbilicus and we placed our Chirag trocar through this hernia. Edgar always has severe postoperative nausea and vomiting and has to stay in the hospital overnight. He even had to stay after the ERCP. He also seems to have issues with anger management when he perceives things not going his way. That is always a little challenging as well for the staff. We had given him a scopolamine patch prior to surgery and that seemed to work out very nicely for him. He also received Precedex during surgery, so he woke up very slowly. He has done very well postoperatively and overnight. He was not particularly interested in ambulating or eating, but otherwise has done well. He has had some moderately dark, but generally thin serosanguineous fluid out the drain. His morning labs were fine. All incisions are healing well. I explained to Edgar that we would be discharging him home today. Electronically Signed By: ISMA KWONG MD 05/10/24 0800 PATIENT NAME: EDGAR JAIMES DISCHARGE SUMMARY DATE OF : 59 REPORT #: [id number] PHYSICIAN: ISMA KWONG MD PCP: JESSICA GOLDEN MD REPORT IS CONFIDENTIAL AND NOT TO BE RELEASED WITHOUT AUTHORIZATION [address] [address] Signed DISCHARGE PLANS AND MEDICATIONS: Edgar is going to go home and continue his usual medications including the labetalol, amlodipine and the chlorthalidone. We will give him a shot of Lovenox this morning before he leaves and then he will start the Cilostazol tomorrow. He will be written for oxycodone immediate release 10 mg tablets one tablet p.o. q.6 hours p.r.n. for severe postoperative pain. We will dispense 15 tablets with no refills. Otherwise, he can use Tylenol for [id number] postoperative pain. This can be purchased [id number]. He is going to use some dressings over his incisions as needed. We will leave the drain in place but he has declined to record the drain output each day. He said he is going to pump and go. We have asked him not to do any heavy pushing, pulling, or lifting over about 20 pounds. Otherwise, he is welcome to perform his activities of daily living including walking up and down stairs and showering and bathing as usual. We will have him back in the office in about 7 to 10 days to remove the drain and richardson. At some point down the road in several months when he has healed up his gallbladder surgery, we can deal with his epigastric hernia. He has expressed understanding and agrees with the above plan. Isma Kwong MD ALB/MODL /[id number] cc: MD Jessica Rod MD Copies: ISMA KWONG MD, RUSSEL J MD ~ Electronically Signed By: ISMA KWONG MD 05/10/24 0800 PATIENT NAME: EDGAR JAIMES DISCHARGE SUMMARY DATE OF : 59 REPORT #: [id number] PHYSICIAN: ISMA KWONG MD PCP: JESSICA GOLDEN MD REPORT IS CONFIDENTIAL AND NOT TO BE RELEASED WITHOUT AUTHORIZATION
--- NOTE | 2024-05-10 08:52 | NUR ---
PATIENT IS SITTING UPRIGHT IN BED WITH EYES OPEN AND RESPIRATIONS ARE EVEN AND UNLABORED. PATIENT STATED NO FURTHER NEEDS AT THIS TIME. CALL LIGHT AND PERSONAL BELONGINGS ARE WITHIN REACH.
[2024-05-10] MEDS ORDERED: PANTOPRAZOLE SODIUM 40 MG/10 ML VIAL IV SCH (09:00)
[2024-05-10] MEDS ORDERED: AMLODIPINE BESYLATE 10 MG TAB PO SCH (09:00)
[2024-05-10] MEDS ORDERED: PANTOPRAZOLE SODIUM 40 MG TABEC PO SCH (09:00)
[2024-05-10] MEDS ORDERED: LIDOCAINE15 GM TOP (09:06)
--- NOTE | 2024-05-10 09:07 | NUR ---
MED REC COMPLETE
[2024-05-10] MEDS ORDERED: OXYCODONE HCL10 MG PO (09:09)
[2024-05-10 09:20] VITALS: BP 157/82
--- NOTE | 2024-05-10 09:20 | NUR ---
0900 MEDICATIONS ADMINISTERED PER THE EMAR. FULL ASSESSMENT COMPLETE AND DOCUMENTED IN THE CHART. PATIENT IS ALERT AND ORIENTED TIMES FOUR. PATIENT IS ON ROOM AIR AND LUNG SOUNDS ARE CLEAR BILATERALLY. CARDIAC WITH NORMAL S1 AND S2. RADIAL PULSES ARE STRONG BILATERALLY. SENSATION INTACT WITH NUMBNESS AND TINGLING IN BILATERAL LOWER EXTREMITIES. PATIENT IS ON A REGULAR DIET AND REFUSING TO EAT BREAKFAST. BOWEL TONES ARE ACTIVE IN ALL FOUR QUADRANTS. ABDOMEN IS TENDER TO PALPATION. IV IS SALINE LOCKED AND THE DRESSING IS CLEAN, DRY, AND INTACT. PATIENT WITH PAIN RATED 9.5/10 IN THE ABDOMEN. PATIENT REFUSED AN ICE PACK AND IS NOT REQUESTING PAIN MEDICATION AT THIS TIME. PATIENT WITH 4 LAP SITES ON THE ABDOMEN THAT ARE CLEAN, DRY, AND INTACT. WENDY DRAIN IN THE RLQ AND DRAINING SANGUINOUS DRAINAGE. PATIENT STATED NO FURTHER NEEDS AT THIS TIME. CALL LIGHT AND PERSONAL BELONGINGS ARE WITHIN REACH.
[2024-05-10 09:37] VITALS: BP 157/82
--- NOTE | 2024-05-10 09:40 | NUR ---
Spoke with Ric. He states he lives in an apartment next to his daughters home. Somewhat like a duplex. He from illness and he has her walker and cane. He states he has problems with a knee from working hard his entire life. He uses the cane at times. He denies need for any other DME. He drives and states he is ok financially. He plans on dc to home today. Daughter is next door and can assist him as needed. Home this am per Dr. Franz.
--- NOTE | 2024-05-10 10:12 | NUR ---
PATIENT IS LYING IN BED AND HIS DAUGHTER IS HERE TO TAKE THE PATIENT HOME. IV PUMP CLEARED OF IV INTAKE FLUIDS. URINAL DUMPED AT THIS TIME. PATIENT IV SITE REMOVED AND PATIENT EDUCATED ON HOW TO CARE FOR THE IV SITE. PATIENT STATED HE KNOW HOW TO DUMP THE WENDY DRAIN. PATIENT IS GETTING DRESSED INDEPENDENTLY. PATIENT STATED NO FURTHER NEEDS AT THIS TIME. CALL LIGHT AND PERSONAL BELONGINGS ARE WITHIN REACH.
--- NOTE | 2024-05-14 18:19 | PATH ---
[facility] [address] [place], [place] [address] Signed SPECIMEN(S): A GALLBLADDER WITH STONES SPECIMEN SOURCE: A. GALLBLADDER WITH STONES CLINICAL HISTORY: Calculus of gallbladder and bile duct FINAL PATHOLOGIC DIAGNOSIS: Gallbladder with stones: - Chronic calculous cholecystitis. JVR:rachelle MICROSCOPIC EXAMINATION: Histologic sections of all submitted blocks are examined by light microscopy. These findings, together with the gross examination, support the pathologic diagnosis. GROSS DESCRIPTION: The specimen, labeled and designated "Palmer Geronimo, gallbladder," is received in formalin and consists of Specimen: Previously open gallbladder. Dimensions: 8.0 x 2.5 x 1.0 cm. Serosa: Pablo Pena-pena congested smooth and glistening with areas of focal hemorrhage. Cystic Duct: The cystic duct previously torn and no distinct cystic duct margin is seen. Calculi: Multiple black calculi measuring 2.0 x 2.0 x 0.4 cm in aggregate. Mucosa: Brown and velvety. Wall thickness: 0.4 cm. Lymph node: No pericystic lymph nodes are grossly identified. Additional: None. Professor Of Vegetable [employer] sections are submitted in (A1). PANFILO (under the direct supervision of a pathologist) The Gross Description was prepared using a voice recognition system. The report was reviewed for accuracy; however, sound-alike word errors, addition and/or deletions may occur. If there is any question about this report, please contact Client Services. PERFORMING LABORATORY: Technical component was performed by [employer], Cristiano Davies, PATIENT NAME: GEMMA GERONIMO PATHOLOGY DATE OF : 59 REPORT #: [id number] PHYSICIAN: BEATRIZ ELLIOTT PCP: JESSICA GOLDEN MD REPORT IS CONFIDENTIAL AND NOT TO BE RELEASED WITHOUT AUTHORIZATION [facility] [address] [place], [place] [address] [place] [address] (CLIA# [id number]). [facility] - [address] [address] (CLIA#: [id number]). Diagnostician: Hugo Nguyen MD Pathologist Electronically Signed 05/14/2024 Copies: ~ PATIENT NAME: GEMMA GERONIMO PATHOLOGY DATE OF : 59 REPORT #: [id number] PHYSICIAN: BEATRIZ ELLIOTT PCP: JESSICA GOLDEN MD REPORT IS CONFIDENTIAL AND NOT TO BE RELEASED WITHOUT AUTHORIZATION
== END 2024-05-10 10:45 | disposition home or self-care (01) ==
LOC: DS 05:45 → MS 11:55
PROVIDERS: ADMIT Colon & Rectal Surgery; ATTEND Colon & Rectal Surgery
PROC: BF522Z0 Other Imaging of Gallbladder using Fluorescing Agent, Intraoperative (ICD-10-PCS; 2024-05-09)
PROC: 0WQF4ZZ Repair Abdominal Wall, Percutaneous Endoscopic Approach (ICD-10-PCS; 2024-05-09)
PROC: 0FT44ZZ Resection of Gallbladder, Percutaneous Endoscopic Approach (ICD-10-PCS; principal; 2024-05-09 07:30)
DX: K80.10 Calculus of gallbladder with chronic cholecystitis without obstruction (principal); K43.9 Ventral hernia without obstruction or gangrene; K43.2 Incisional hernia without obstruction or gangrene; E78.5 Hyperlipidemia, unspecified; M17.0 Bilateral primary osteoarthritis of knee; I10 Essential (primary) hypertension; Z88.5 Allergy status to narcotic agent; Z91.010 Allergy to peanuts; Z79.899 Other long term (current) drug therapy
CPT/HCPCS: 00790; 36415; 74300; 80053; 83690; 83735; 84100; 85025; 88304; 96372; 96374; A9270; G0378; J0131; J0360; J0690; J1100; J1650; J1885; J2250; J2405; J2704; J2765; J3010; J3490; J7121; Q9967